=== PATIENT | female | born 1980 | race Caucasian/White ===

== ENCOUNTER 2021-01-27 08:30 | Emergency (ER) | payer OTHER ==
[2021-01-27] MEDS ORDERED: SODIUM CHLORIDE 0.9% 1,000 ML IV STA (08:43)
[2021-01-27] MEDS ORDERED: KETOROLAC 15 MG/ML 1 ML VIAL IVP STA (08:44)
[2021-01-27] MEDS ORDERED: ONDANSETRON 4 MG/2 ML VIAL IVP STA (08:44)
--- NOTE | 2021-01-27 08:50 | ED ---
General Adult HPI - General Stated complaint: Chest pain Time Seen by Provider: 01/27/21 08:33 Source: patient, EMS, RN notes reviewed, old records reviewed - History of Present Illness Initial comments: 40-year-old female presents for evaluation of chest pain and abdominal pain. Pain has progressed over the past 3 days. Patient is currently in rehabilitation for cocaine and opiate abuse. She has been abstinent for the past 3 days. She is complaining of some nausea, diffuse chest pain. She does report some minimal abdominal pain as well. No fever. She has not vomited. She denies current . - Related Data Home Medications Medication Instructions Recorded Confirmed Acetaminophen [Tylenol Arthritis] 650 mg PO Q4H PRN 01/27/21 01/27/21 Buprenorphine HCl/Naloxone HCl See Taper SL DIRECTED 01/27/21 01/27/21 [Buprenorp-Nalox 4-1 mg Sl Film] Calcium/Magnesium 1 tab PO TID PRN 01/27/21 01/27/21 Chlorpheniramine Maleate 4 mg PO Q4H PRN 01/27/21 01/27/21 [Chlor-Trimeton] Hyoscyamine Sulfate [Levsin-Sl] 0.125 mg SL QID PRN 01/27/21 01/27/21 Ibuprofen [Motrin] 600 mg PO Q6H PRN 01/27/21 01/27/21 Loperamide [Imodium] 4 mg PO QID PRN 01/27/21 01/27/21 Multivitamins, Thera [Multivitamin 1 tab PO DAILY@0600 01/27/21 01/27/21 (formulary)] Sertraline [Zoloft] 200 mg PO DAILY 01/27/21 01/27/21 Thiamine [Vitamin B-1] 100 mg PO DAILY@0600 01/27/21 01/27/21 Tigan 200mg 200 mg IM Q6H PRN 01/27/21 01/27/21 Topiramate [Topamax] 100 mg PO BID@0600,1730 01/27/21 01/27/21 Trimethobenzamide [Tigan] 300 mg PO Q6H PRN 01/27/21 01/27/21 Zofran 2mg/Ml 2 mg IM Q6H PRN 01/27/21 01/27/21 buPROPion HCL [buPROPion HCL Xl] 450 mg PO DAILY@0600 01/27/21 01/27/21 busPIRone HCl [Buspar] 10 mg PO TID 01/27/21 01/27/21 cloNIDine HCL [Catapres] 0.1 mg PO Q4H PRN 01/27/21 01/27/21 ondansetron HCL [Zofran] 8 mg PO Q6H PRN 01/27/21 01/27/21 traZODone HCL [Desyrel] 100 mg PO HS 01/27/21 01/27/21 Allergies Allergy/AdvReac Type Severity Reaction Status Date / Time codeine Allergy Unknown Verified 01/27/21 10:07 Review of Systems ROS Statement: Those systems with pertinent positive or pertinent negative responses have been documented in the HPI. ROS Other: All systems not noted in ROS Statement are negative. General Exam General appearance: alert, in no apparent distress Head exam: Present: atraumatic, normocephalic Eye exam: Present: normal appearance, PERRL ENT exam: Present: mucous membranes dry Neck exam: Present: normal inspection. Absent: tenderness, meningismus Respiratory exam: Present: normal lung sounds bilaterally. Absent: respiratory distress, wheezes, rales Cardiovascular Exam: Present: regular rate, normal rhythm GI/Abdominal exam: Present: soft. Absent: distended, tenderness, guarding Extremities exam: Present: normal inspection, normal capillary refill. Absent: pedal edema Neurological exam: Present: alert, oriented X3, CN II-XII intact. Absent: motor sensory deficit Psychiatric exam: Present: normal affect, normal mood Skin exam: Present: warm, dry, intact. Absent: cyanosis, diaphoretic Course Vital Signs 01/27/21 09:09 Temperature 98 F Pulse Rate 76 Respiratory 18 Rate Blood Pressure 103/56 O2 Sat by Pulse 98 Oximetry EKG Findings - EKG Comments: EKG Findings:: EKG: Normal sinus rhythm, rate of 68, TX interval 128, QRS duration 88 QTC 431, no ST segment elevation. Medical Decision Making - Medical Decision Making 40-year-old female presenting from rehab facility with nonspecific chest pain or abdominal pain nausea. 3 days being abstinent from cocaine, alcohol, and opiates. Patient is hemodynamically stable, no tremor or signs of alcohol withdrawal. EKG is sinus rhythm without ischemic changes. Chest x-rays negative for acute cardiopulmonary disease. Patient has a normal CBC, CMP showing a CO2 of 19 otherwise unremarkable, troponin is negative. Patient is given symptomatic treatment. She will return to rehab. Return with worsening or changing symptoms. - Lab Data Result diagrams: 01/27/21 09:30 01/27/21 09:30 Lab Results 01/27/21 01/27/21 01/27/21 Range/Units 09:30 09:30 09:30 WBC 7.9 (3.8-10.6) k/uL RBC 4.25 (3.80-5.40) m/uL Hgb 13.4 (11.4-16.0) gm/dL Hct 37.6 (34.0-46.0) % MCV 88.5 (80.0-100.0) fL MCH 31.6 (25.0-35.0) pg MCHC 35.7 (31.0-37.0) g/dL RDW 12.0 (11.5-15.5) % Plt Count 279 (150-450) k/uL MPV 6.4 Neutrophils % 78 % Lymphocytes % 16 % Monocytes % 4 % Eosinophils % 1 % Basophils % 0 % Neutrophils # 6.2 (1.3-7.7) k/uL Lymphocytes # 1.3 (1.0-4.8) k/uL Monocytes # 0.3 (0-1.0) k/uL Eosinophils # 0.1 (0-0.7) k/uL Basophils # 0.0 (0-0.2) k/uL PT 10.6 (9.0-12.0) sec INR 1.0 (<1.2) APTT 20.6 L (22.0-30.0) sec Sodium 140 (137-145) mmol/L Potassium 3.5 (3.5-5.1) mmol/L Chloride 113 H (98-107) mmol/L Carbon Dioxide 19 L (22-30) mmol/L Anion Gap 8 mmol/L BUN 21 H (7-17) mg/dL Creatinine 0.94 (0.52-1.04) mg/dL Est GFR (CKD-EPI)AfAm 88 (>60 ml/min/1.73 sqM) Est GFR (CKD-EPI)NonAf 76 (>60 ml/min/1.73 sqM) Glucose 109 H (74-99) mg/dL Calcium 8.8 (8.4-10.2) mg/dL Magnesium 1.9 (1.6-2.3) mg/dL Total Bilirubin 0.4 (0.2-1.3) mg/dL AST 27 (14-36) U/L ALT 24 (4-34) U/L Alkaline Phosphatase 89 (38-126) U/L Troponin I (0.000-0.034) ng/mL Total Protein 6.7 (6.3-8.2) g/dL Albumin 4.0 (3.5-5.0) g/dL 01/27/21 Range/Units 09:30 WBC (3.8-10.6) k/uL RBC (3.80-5.40) m/uL Hgb (11.4-16.0) gm/dL Hct (34.0-46.0) % MCV (80.0-100.0) fL MCH (25.0-35.0) pg MCHC (31.0-37.0) g/dL RDW (11.5-15.5) % Plt Count (150-450) k/uL MPV Neutrophils % % Lymphocytes % % Monocytes % % Eosinophils % % Basophils % % Neutrophils # (1.3-7.7) k/uL Lymphocytes # (1.0-4.8) k/uL Monocytes # (0-1.0) k/uL Eosinophils # (0-0.7) k/uL Basophils # (0-0.2) k/uL PT (9.0-12.0) sec INR (<1.2) APTT (22.0-30.0) sec Sodium (137-145) mmol/L Potassium (3.5-5.1) mmol/L Chloride (98-107) mmol/L Carbon Dioxide (22-30) mmol/L Anion Gap mmol/L BUN (7-17) mg/dL Creatinine (0.52-1.04) mg/dL Est GFR (CKD-EPI)AfAm (>60 ml/min/1.73 sqM) Est GFR (CKD-EPI)NonAf (>60 ml/min/1.73 sqM) Glucose (74-99) mg/dL Calcium (8.4-10.2) mg/dL Magnesium (1.6-2.3) mg/dL Total Bilirubin (0.2-1.3) mg/dL AST (14-36) U/L ALT (4-34) U/L Alkaline Phosphatase (38-126) U/L Troponin I <0.012 (0.000-0.034) ng/mL Total Protein (6.3-8.2) g/dL Albumin (3.5-5.0) g/dL Disposition Clinical Impression: Opiate withdrawal, Chest pain Disposition: HOME SELF-CARE Condition: Fair Instructions (If sedation given, give patient instructions): Chest Pain (ED), Opioid Withdrawal (ED) Is patient prescribed a controlled substance at d/c from ED?: No Referrals: Nonstaff,Physician [Primary Care Provider] - 1-2 days Jose Perez MD [REFERRING] - 1-2 days Time of Disposition: 11:04
[2021-01-27 09:24] VITALS: RESP 18; TEMP 98
[2021-01-27 09:41] LABS: Basophils % (A) 0 %; Eosinophils # (A) 0.1 k/uL (0-0.7); Eosinophils % (A) 1 %; HCT 37.6 % (34.0-46.0); HGB 13.4 gm/dL (11.4-16.0); Lymphocytes # (A) 1.3 k/uL (1.0-4.8); Lymphocytes % (A) 16 %; MCH 31.6 pg (25.0-35.0); MCHC 35.7 g/dL (31.0-37.0); MCV 88.5 fL (80.0-100.0); Mean Platelet Volume 6.4; Monocytes # (A) 0.3 k/uL (0-1.0); Monocytes % (A) 4 %; Neutrophils # (A) 6.2 k/uL (1.3-7.7); Neutrophils % (A) 78 %; Platelet Count 279 k/uL (150-450); RBC 4.25 m/uL (3.80-5.40); WBC 7.9 k/uL (3.8-10.6)
--- NOTE | 2021-01-27 09:44 | XR ---
EXAMINATION TYPE: XR chest 2V DATE OF EXAM: 01/27/2021 COMPARISON: NONE HISTORY: Chest pain TECHNIQUE: Frontal and lateral views of the chest are obtained. FINDINGS: There is no focal air space opacity. No evidence for pneumothorax. No pleural effusion. The cardiac silhouette size is within normal limits. The osseous structures are grossly intact. IMPRESSION: 1. No acute cardiopulmonary process.
[2021-01-27 09:50] LABS: Calcium 8.8 mg/dL (8.4-10.2); Magnesium 1.9 mg/dL (1.6-2.3); Potassium 3.5 mmol/L (3.5-5.1); Total Bilirubin 0.4 mg/dL (0.2-1.3); Total Protein 6.7 g/dL (6.3-8.2)
[2021-01-27 09:55] LABS: Prothrombin Time 10.6 sec (9.0-12.0)
[2021-01-27 09:58] LABS: Partial Thromboplastin Time 20.6 sec (22.0-30.0)
[2021-01-27] MEDS ORDERED: LORazepam 2 MG/ML INJ IV STA (11:02)
[2021-01-27 11:58] VITALS: BP 119/83; PULSE 60
== END 2021-01-27 14:43 | disposition home or self-care (01) ==
LOC: EC 08:30
DX: F11.23 Opioid dependence with withdrawal (principal); R07.9 Chest pain, unspecified; Z79.1 Long term (current) use of non-steroidal anti-inflammatories (NSAID); Z79.899 Other long term (current) drug therapy
CPT/HCPCS: 36415; 93005; 80053; 83735; 84484; 85025; 85610; 85730; 71046; 99285; 96374; 96375; 96361; J2060; J2405; J1885